=== PATIENT | male | born 1935 | race Caucasian/White ===

== ENCOUNTER 2021-03-21 22:37 | Emergency (ER) | payer MEDICARE, SELFPAY ==
--- NOTE | 2021-03-21 22:42 | ED.AMS ---
HPI - Altered Mental Status General Chief Complaint: Altered Mental Status Stated Complaint: ams Time Seen by Provider: 03/21/21 22:42 Source: patient and EMS Mode of arrival: EMS Limitations: altered mental status History of Present Illness MD complaint: other (agitation) Onset (ago): hour(s) Timing confirmed by: caregiver Severity: moderate Consistency of symptoms: waxing and waning Context: history of similar presentation Associated symptoms: denies other symptoms Treatments prior to arrival: other (klonopin [employer] calm and cooperative with EMS) Related Data Allergies Allergy/AdvReac Type Severity Reaction Status Date / Time amoxicillin [AMOXICILLIN] Allergy Unknown RASH Unverified 05/17/20 14:33 ciprofloxacin [From CIPRO] Allergy Unknown RASH Unverified 05/17/20 14:33 Review of Systems Review of Systems: ROS unable to be obtained due to altered mental status [facility] Past Medical History Source: nursing notes reviewed Medical History (Updated 03/22/21 @ 00:58 by Tami Juan DO) Dementia Social History Social History (Updated 03/21/21 @ 22:51 by Tami Juan DO) Housing: Longterm Patient Tobacco Use Status: Tobacco use Unknown Advance Directives: No Advance Directives Information Provided: No Physical Exam Vital Signs: Vital Signs: Last Vital Signs Temp 98.7 F 03/21/21 22:44 Pulse 71 03/21/21 22:44 Resp 16 03/21/21 22:44 BP 108/75 03/21/21 22:44 Pulse Ox 98 03/21/21 22:44 Body Mass Index 28.8 Appearance: Alert. Oriented X1. No acute distress. Eyes: Pupils equal, round and reactive to light. ENT: Pharynx normal. Neck: Normal inspection. Neck supple. CVS: Normal heart rate and rhythm. Pulses normal. Respiratory: No respiratory distress. Breath sounds normal. Abdomen: Soft and no grimace to palpation Skin: Skin warm and dry. Normal skin color. Normal skin turgor. Extremities: No lower extremity edema. No calf ttp Neuro: Oriented X 1. No motor deficit. No sensory deficit. Course Course Course Narrative: daughter's phone went right to voicemail - given [facility] form and the pateint does not appear in pain will DC back to facility he is calm and cooperative MDM - Altered Mental Status MDM Narrative Medical decision making narrative: 85 yo male with hx of dementia on PRN medications sent in for agitation hx of same in the past given klonopin [employer] - with EMS and ED no agitation, calm he is [employer] MEMBER per [facility] and SNF notes - will dc back to facility as he is a do not transfer unless for comfort and he appears very comfortable and calm on arrival Discharge Plan Discharge Clinical Impression: Dementia Patient Disposition: Xfer LTC Transfer Details: Back to [facility] Instructions: Dementia (ED) Additional Instructions: return to ED for any worsening symptoms or concerns Interventions: ED Discharge Assessment Last Done: 03/22/21 00:19 Discharge Date/Time: 03/22/21 00:21
[2021-03-21 22:44] VITALS: BP 108/75; PULSE 71; RESP 16; TEMP 37.1; O2SAT 98; BMI 28.8
== END 2021-03-22 00:21 ==
LOC: HO.ED 23:02
PROVIDERS: Emergency Provider Emergency Medicine; PCP Internal Medicine
DX: F03.91 Unspecified dementia, unspecified severity, with behavioral disturbance (principal)
CPT/HCPCS: 99284

== ENCOUNTER 2021-10-20 00:05 | Emergency (ER) | payer MEDICARE, SELFPAY ==
[2021-10-20 00:28] VITALS: BP 130/66; BP 150/92; PULSE 80; PULSE 82; RESP 16; TEMP 37; O2SAT 95; O2SAT 98; BMI 18.6
[2021-10-20] MEDS: clonazePAM 0.5 MG TABLET PO (00:43)
--- NOTE | 2021-10-20 01:22 | ED.GENADULT ---
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 medication ordered for these is brought in by EMS and police department [place] [employer] to the patient for transport. Patient arrives without acute distress and unable to get good history given underlying dementia but denies any current pain. Related Data Allergies Allergy/AdvReac Type Severity Reaction Status Date / Time amoxicillin [AMOXICILLIN] Allergy Unknown RASH Unverified 05/17/20 14:33 ciprofloxacin [From CIPRO] Allergy Unknown RASH Unverified 05/17/20 14:33 Review of Systems Review of Systems: Pertinent positives and negatives as per HPI and any further history unable to be obtained from the patient due to dementia. [facility] Past Medical History Source: nursing notes reviewed Medical History Dementia Social History Social History Housing: Detention Alcohol intake: never Patient Tobacco Use Status: Tobacco use Unknown Use of substances other than those prescribed or required for medical reasons: No Advance Directives: No Physical Exam ED Vital Signs: Vital Signs - 24 hr 10/20/21 00:28 Temperature 98.6 F Pulse Rate 80 Respiratory Rate 16 Blood Pressure 130/66 Pulse Oximetry 95 BMI result Body Mass Index 18.6 VITAL SIGNS: Reviewed. GENERAL: Well developed, well nourished, in no acute distress. HEAD: Normocephalic/atraumatic EYES: PERRLA, EOMI EARS: Ext canals without abnormality OROPHARYNX: no oral lesions noted, posterior pharynx clear LUNGS: Normal breath sounds. No adventitious sounds or accessory muscle use. SpO2<95> CARDIOVASCULAR: Regular rate and rhythm without noted murmurs ABDOMEN: Soft, non-tender, non-distended with bowel sounds. MUSCULOSKELETAL: No tenderness, deformities, or effusions noted on gross inspection. EXTREMITIES: No cyanosis, clubbing or edema. SKIN: Inspection of the skin reveals no rashes NEUROLOGIC: Alert and oriented x 1. Strength and sensation to light touch were grossly intact x 4. Course Course Course Narrative: 85-year-old male with history and clinical presentation of consistent with patient's underlying dementia and occasional verbal outburst. Patient was able to be deescalated here in the emergency room and on review of documentation patient has responded well with Klonopin and so 0.5 mg was given to the patient with good results. He is calm and cooperative at present and otherwise patient is clinically stable and there is no evidence any medically concerning issue. Discharge Plan Discharge Clinical Impression: Dementia, Aggressive outburst Patient Disposition: Xfer SNF Instructions: Dementia (ED) Additional Instructions: Resume home medications as prescribed. Recommend utilizing p.r.n. medication for patient's outbursts. Return to the ER for worsening symptoms.
== END 2021-10-20 01:50 | disposition skilled nursing facility (03) ==
PROVIDERS: Emergency Provider Student in an Organized Health Care Education/Training Program
DX: F03.91 Unspecified dementia, unspecified severity, with behavioral disturbance (principal); Z79.899 Other long term (current) drug therapy
CPT/HCPCS: 99284

== ENCOUNTER 2021-11-23 18:11 | Emergency (ER) | payer MEDICARE, SELFPAY ==
--- NOTE | ~2021-11-23 | CT_ITS ---
EXAMINATION: CT HEAD WITHOUT CONTRAST CLINICAL INFORMATION: Status post fall. COMPARISON: CT of the head done on 06/08/2018. TECHNIQUE: Contiguous axial imaging was performed from the skull base to vertex without intravenous administration of contrast. This CT examination was performed using dose optimization techniques as appropriate, variously including the following: *Automated exposure control *Adjustment of mA and/or kV according to patient size (this includes techniques or standardized protocols for targeted exams where dose is matched to indication/reason for exam; i.e. extremities or head) *Use of iterative reconstruction technique DLP: 705.22 mGy-cm FINDINGS: There is no evidence of acute intracranial hemorrhage or territorial infarction. No abnormal mass effect or midline shift is seen. Cheung to white matter differentiation is well preserved. No extra-axial fluid collections are identified. The ventricles are normal in size. Mild periventricular deep white matter hypodensities and mild prominent extra-axial space, appear unchanged since 06/08/2018. The osseous structures and soft tissues are normal. The mastoid air cells and visualized portions of the paranasal sinuses are well aerated. CT/CT head/brain wo con IMPRESSION: No acute intracranial pathology. No significant change since 06/08/2018.
[2021-11-23 18:17] VITALS: BP 116/82; PULSE 90; RESP 20; TEMP 36.9; O2SAT 97; BMI 24.4
--- NOTE | 2021-11-23 18:23 | ED.AMS ---
HPI - Altered Mental Status General Chief Complaint: General Medical Stated Complaint: AMS/Agitation Time Seen by Provider: 11/23/21 18:21 Source: EMS and RN notes reviewed Mode of arrival: EMS Limitations: altered mental status History of Present Illness HPI narrative: Patient with history of dementia with behavior problem sent from [facility] because patient was very aggressive hitting scratching not easily directable was given Zyprexa in the morning also patient had unwitnessed fall around 16:00 no signs of injuries as such no fever no vomiting no diarrhea Related Data Previous Rx's Medication Instructions Recorded cefpodoxime 200 mg tablet 200 mg PO BID #20 tab 11/23/21 Allergies Allergy/AdvReac Type Severity Reaction Status Date / Time amoxicillin [AMOXICILLIN] Allergy Unknown RASH Unverified 05/17/20 14:33 ciprofloxacin [From CIPRO] Allergy Unknown RASH Unverified 05/17/20 14:33 Review of Systems Review of Systems: Yes Unobtainable due to mental status [facility] Past Medical History Medical History Dementia Social History Social History Housing: [facility]way Alcohol intake: never Patient Tobacco Use Status: Tobacco use Unknown Smoked in Last 30 Days: No Use of substances other than those prescribed or required for medical reasons: No Advance Directives: No Advance Directives Information Provided: No Physical Exam ED Vital Signs: Vital Signs - 24 hr 11/23/21 18:17 11/23/21 22:03 Temperature 98.4 F Pulse Rate 90 97 Respiratory Rate 20 18 Blood Pressure 116/82 135/78 Pulse Oximetry 97 97 BMI result Body Mass Index 24.4 Const General: healthy appearing and comfortable Orientation/consciousness: oriented to person [facility] Head: Yes normocephalic and Yes atraumatic Ears: hearing grossly normal bilaterally Face and sinus: Yes normal facial exam Eyes General: appearance normal, both eyes and all related structures Neck Neck: Yes full ROM and No tender Chest Chest palpation & inspection: normal inspection of the chest and normal palpation of entire chest wall Resp Effort & Inspection: normal respiratory effort Auscultation: clear to auscultation bilaterally Cardio Palpation: normal PMI Rate: regular rate Rhythm: regular rhythm Heart sounds: S1 normal heart sound present and S2 normal heart sound present GI Palpation (GI): Soft to palpation and nontender Auscultation: normal bowel sounds General: Yes no CVA tenderness Back/Spine/Pelvis Back: no CVA tenderness Thoracic/Lumbar Spine: No thoracic spinal tenderness and No lumbar spinal tenderness Neuro General: oriented to person, tone normal and moves all extremities MDM - Altered Mental Status MDM Narrative Medical decision making narrative: Patient with dementia with frequent hospitalization for aggressive behavior was seen here last month also for same workup showed UTI with that is contributing to his behavior change but no signs of sepsis will give him p.o. Ceftin and discharge him on p.o. antibiotics. Head CT negative for any acute Medical Records Attestation: I reviewed the patient's medical records. Lab Data Attestation: I reviewed the patient's lab results. Result diagrams: 11/23/21 19:10 11/23/21 19:10 Labs: Lab Results 11/23/21 11/23/21 11/23/21 Range/Units 19:10 19:10 20:24 WBC 9.2 (4.8-10.8) X10*3/uL RBC 3.98 L (4.60-5.80) X10*6/uL Hgb 11.7 L (14.0-18.0) g/dl Hct 36.2 L (42.0-52.0) % MCV 91.0 (80.0-98.0) fL MCH 29.4 (27.0-33.0) pg MCHC 32.3 (31.0-36.0) g/dl RDW 13.1 (11.0-16.0) % Plt Count 202 (160-400) X10*3/uL MPV 9.8 (9.4-12.4) fL Immature Gran % (Auto) 0.2 (0.0-0.4) % Neut % (Auto) 65.3 (45-73) % Lymph % (Auto) 22.2 (20-40) % [place] % (Auto) 8.6 (2-11) % Eos % (Auto) 3.2 (0-4) % Baso % (Auto) 0.5 (0-2) % Lymph # (Auto) 2.0 (1.2-4.9) X10*3/uL [place] # (Auto) 0.8 (0.1-1.2) X10*3/uL Eos # (Auto) 0.3 (0.0-0.4) X10*3/uL Baso # (Auto) 0.1 (0.0-0.2) X10*3/uL Abs Immat Gran (auto) 0.02 (0.00-0.03) X10*3/uL Absolute Neuts (auto) 6.0 (2.0-8.3) x10*3/uL Absolute Nucleated RBC 0.000 (0.0-0.012) X10*3/uL Nucleated RBC % (auto) 0.0 (0.0-0.2) /100WBC Sodium 139 (135-145) mmol/L Potassium 4.6 (3.3-5.1) mmol/L Chloride 105 (96-108) mmol/L Carbon Dioxide 25 (22-29) mmol/L Anion Gap 14 (12-20) BUN 35 H (9-16) mg/dL Creatinine 0.98 (0.5-1.4) mg/dL Estim Creat Clear Calc 47.9 Estimated GFR > 60 Random Glucose 136 H (60-115) mg/dL Calcium 9.0 (8.4-10.2) mg/dL Total Bilirubin 0.5 (0.0-1.0) mg/dL AST 16 (5-37) U/L ALT 11 (0-40) U/L Alkaline Phosphatase 92 (39-117) U/L Total Protein 7.4 (6.5-8.0) g/dL Albumin 3.8 (3.5-5.0) g/dL Urine Color YELLOW Urine Appearance HAZY Urine pH 7.0 (5.0-8.0) Ur Specific [place] <= 1.005 (1.005-1.025) Urine Protein NEG (NEG-TRACE) MG/DL Urine Glucose (UA) NEG (NEG) MG/DL Urine Ketones NEG (NEG) MG/DL Urine Blood 1+ H (NEG) Urine Nitrite POS H (NEG) Ur Leukocyte Esterase 3+ H (NEG) Urine RBC 5-9 H (0) /HPF Urine WBC TNTC H (0-4) /HPF Ur Squamous Epith Cells TRACE /LPF Urine Bacteria 3+ /LPF Discharge Plan Discharge Clinical Impression: Dementia with psychosis, UTI (urinary tract infection) Patient Disposition: Xfer LTC Instructions: Urinary Tract Infection in Men (DC), Dementia (ED) Additional Instructions: Take antibiotics as prescribed Patient has dementia with UTI may be causing the worsening of the symptoms Drink plenty of fluids Prescriptions: New cefpodoxime 200 mg tablet 200 mg PO BID Qty: 20 0RF Rx Instructions: must administer with a meal/food
[2021-11-23 19:12] LABS: MANUAL DIFF FLAG NO
[2021-11-23 19:13] LABS: Basophils Absolute Auto 0.1 X10*3/uL (0.0-0.2); Basophils Percent Auto 0.5 % (0-2); Eosinophils Absolute Auto 0.3 X10*3/uL (0.0-0.4); Eosinophils Percent Auto 3.2 % (0-4); Hematocrit 36.2 % (42.0-52.0); Hemoglobin 11.7 g/dl (14.0-18.0); Imm Gran Abs Auto 0.02 X10*3/uL (0.00-0.03); Imm Gran Pct Auto 0.2 % (0.0-0.4); Lymphocytes Percent Auto 22.2 % (20-40); Mean Corpuscular HGB Conc 32.3 g/dl (31.0-36.0); Mean Corpuscular Hemoglobin 29.4 pg (27.0-33.0); Mean Platelet Volume 9.8 fL (9.4-12.4); Monocytes Absolute Auto 0.8 X10*3/uL (0.1-1.2); Monocytes Percent Auto 8.6 % (2-11); Neutrophils Percent Auto 65.3 % (45-73); Platelet Count 202 X10*3/uL (160-400); Red Blood Count 3.98 X10*6/uL (4.60-5.80); Red Cell Distribution Width 13.1 % (11.0-16.0); White Blood Count 9.2 X10*3/uL (4.8-10.8)
[2021-11-23 19:43] LABS: Alanine Aminotransferase 11 U/L (0-40); Albumin Level 3.8 g/dL (3.5-5.0); Alkaline Phosphatase 92 U/L (39-117); Anion Gap 14 (12-20); Aspartate Amino Transferase 16 U/L (5-37); Bilirubin Total 0.5 mg/dL (0.0-1.0); Blood Urea Nitrogen 35 mg/dL (9-16); Carbon Dioxide 25 mmol/L (22-29); Chloride 105 mmol/L (96-108); Creatinine Clr Calc Pharmacy 47.9; Estimated Glomerular Filt Rate > 60; Glucose Random 136 mg/dL (60-115); Potassium 4.6 mmol/L (3.3-5.1); Sodium 139 mmol/L (135-145); Total Protein 7.4 g/dL (6.5-8.0)
[2021-11-23 20:41] LABS: Appearance Urine HAZY; Color Urine YELLOW; Glucose Urine UA NEG (NEG); Leukocyte Esterase Urine 3+ (NEG); Nitrite Urine POS (NEG); Specific Gravity - Urine <= 1.005 (1.005-1.025); UACC Culture Trigger YES; Urine Blood 1+ (NEG); Urine Ketones NEG (NEG); Urine Protein NEG (NEG-TRACE)
[2021-11-23 20:51] LABS: Bacteria Urine 3+ /LPF; Squamous Epithelial Cell Urine TRACE /LPF; WBC Urine TNTC /HPF (0-4)
[2021-11-23 22:03] VITALS: BP 135/78; PULSE 97; RESP 18; O2SAT 97
--- NOTE | 2021-11-23 22:04 | PC.NURSE ---
Nurse to nurse report given to Eli HUA at [facility]
== END 2021-11-23 23:21 ==
PROVIDERS: Emergency Provider Internal Medicine
DX: N39.0 Urinary tract infection, site not specified (principal); F03.91 Unspecified dementia, unspecified severity, with behavioral disturbance; R45.1 Restlessness and agitation; R45.6 Violent behavior
CPT/HCPCS: 36415; 70450; 80053; 81001; 85025; 87086; 87088; 87186; 99284